=== PATIENT | female | born 1985 | race Caucasian/White ===

== ENCOUNTER 2017-04-09 19:28 | Emergency (ER) | payer OTHER ==
[~2017-04-09] VITALS: Ht 182.9 cm; Wt 77.1 kg
[2017-04-09] MEDS ORDERED: NAPROSYN500 MG PO (20:48)
[2017-04-09 21:23] VITALS: BP 130/76
== END 2017-04-09 21:24 | disposition home or self-care (01) ==
LOC: ER 19:28
DX: S60.221A Contusion of right hand, initial encounter (principal); W22.8XXA Striking against or struck by other objects, initial encounter; Y93.89 Activity, other specified; Y92.89 Other specified places as the place of occurrence of the external cause; Y99.8 Other external cause status